=== PATIENT | female | born 1945 | race Two or more races ===

== ENCOUNTER 2022-10-22 11:56 | Emergency (ER) | payer OTHER ==
[~2022-10-22] VITALS: Ht 160 cm; Wt 74.8 kg
[2022-10-22] MEDS ORDERED: LEVOTHYROXINE25 MCG PO (12:10)
== END 2022-10-22 14:07 | disposition home or self-care (01) ==
LOC: ER 11:56
DX: B02.9 Zoster without complications (principal); I10 Essential (primary) hypertension; Z95.0 Presence of cardiac pacemaker